=== PATIENT | male | born 1950 | race Caucasian/White ===

== ENCOUNTER 2017-03-30 20:22 | Emergency (ER) | payer MEDICARE, OTHER ==
[~2017-03-30] VITALS: Ht 172.7 cm; Wt 102.3 kg
[2017-03-30] MEDS ORDERED: ASPI325T4 PO (21:37)
[2017-03-30 21:41] VITALS: BP 189/86
[2017-03-30 21:59] LABS: ASPARTATE AMINO TRANSFERASE 25 U/L (15-37); BLOOD UREA NITROGEN 20 mg/dL (7-18)
== END 2017-03-30 22:37 | disposition home or self-care (01) ==
LOC: ED 21:52
DX: K62.5 Hemorrhage of anus and rectum (principal); I10 Essential (primary) hypertension
CPT/HCPCS: 36415; 80053; 85025; 85610; 86850; 86900; 99284